=== PATIENT | female | born 2000 | race Caucasian/White ===

== ENCOUNTER 2023-09-10 10:56 | Emergency (ER) | payer OTHER, SELFPAY ==
[2023-09-10 11:00] VITALS: BP 113/78
--- NOTE | 2023-09-10 12:17 | ED.GENMED ---
History of Present Illness
General
Chief Complaint: Musculo-Skeletal Complaint
Time Seen by Provider: 09/10/23 12:15
Travel History
Have you had any contact with someone who has COVID-19?: No
Do you have any symptoms of coronavirus? Fever > 100 degrees, chills, cough, shortness of breath, sore throat, loss of taste or smell, muscle aches, or headache?: No
History of Present Illness
History of Present Illness:
23-year-old female presents the emergency department for evaluation of left-sided pelvic pain over the past 2 days. She states she has had similar pain intermittently for the past 2 months and typically occurs with her menstrual cycle. Her last
period was just over 2 weeks ago, states that she began bleeding today and this is irregular for her. Denies any possibility of , does have an IUD. No reported fevers or chills. No lower urinary tract voiding symptoms
Review of Systems
Review of Systems
Allergies reviewed?: Yes
All Other Systems: ROS reviewed and negative except as documented in HPI and ROS
Phy Exam
Physical Exam
Physical Exam:
GEN: Well appearing, NAD, WDWN
HEENT: Oral mucosa moist, no scleral icterus
Cardiac: Regular rate
Lung: No respiratory distress, no tachypnea
Abdomen: Soft, nontender, minimal reproducible tenderness to the left lower pelvic region
MSK: No gross deformity or injuries
Skin: Good color, no pallor or jaundice, no rashes
Neuro: AO x3, moves all extremities freely
Psych: Calm, cooperative
Course
Orders/Labs/Results
Orders:
Orders
09/10/23 11:28
US Pelvis W Transvag Combined Urgent
Reason For Exam: L sided r/o ovarian cyst
09/10/23 12:41
Test Result ONCE
09/10/23 15:02
Beta Hcg Urine Qualitative Screen [HCG, Urine Qualitative Screen] Urgent
Date Specimen was Collected: 09/10/23
Time Specimen was Collected: 13:30
Urinalysis Reflex To Culture Urgent
Date Specimen was Collected: 09/10/23
Time Specimen was Collected: 13:30
Vital Signs
Initial and Last Documented VS:
Initial Vital Signs
Temp Pulse Resp BP Pulse Ox
97.9 F 78 16 113/78 100
09/10/23 11:00 09/10/23 11:00 09/10/23 11:00 09/10/23 11:00 09/10/23 11:00
Last Documented Vital Signs
Temp Pulse Resp BP Pulse Ox
97.9 F 78 16 113/78 100
09/10/23 11:00 09/10/23 11:00 09/10/23 11:00 09/10/23 15:19 09/10/23 11:00
MDM/Problems Addressed
MDM/Problems Addressed:
Ultrasound and urinalysis are unremarkable. Unclear etiology to the patient's symptoms. Discussed further supportive care and recommend [employer] f/u
*Critical Care Note
Total Time (30-74mins, 75-104mins- exclusive of procedures): Not Applicable
ED Attending Note
-
Portions of this chart may have been created with voice recognition software.� Occasional wrong word or��sound alike� substitutions may have occurred due to the inherent limitations of voice recognition software.
Discharge Plan
Departure
Patient Disposition: Home (Routine Discharge)
Date of Disposition: 09/10/23
Time of Disposition: 15:17
Patient with high blood pressure during this ER visit?: No
Discharge Problem:
Pelvic pain
Instructions: Pelvic Pain (DC)
Prescriptions:
No Action
montelukast 10 MG tablet
10 mg PO HS
albuterol sulfate [Ventolin HFA] 90 MCG/PUFF HFA aerosol inhaler
2 puff inhalation Q4HPRN PRN (Reason: sob/wheezing)
fluticasone propionate 1 SPRAY spray,suspension
2 spray intranasal BID
multivitamin with folic acid [Tab-A-Ninfa] 1 TABLET tablet
1 tab PO HS
acetaminophen [Genebs] 500 MG tablet
2 tab PO Q4H PRN (Reason: pain, headache) Qty: 30 0RF
oxycodone 5 MG tablet
5 mg PO Q4HPRN PRN (Reason: severe pain ) Qty: 7 0RF
Referrals:
Karen Pak DO [Family Provider] -
Interventions
Interventions:
*Risk Screen - Suicide Last Done: 09/10/23 15:19
*General Assessment Last Done: 09/10/23 11:00
*Neglect/Abuse Screening Last Done: 09/10/23 15:19
*Nursing Disposition Last Done: 09/10/23 15:19
ED-Musculoskeletal Assessment Last Done: 09/10/23 15:19
[2023-09-10 15:10] LABS: Urine Albumin Negative (Neg - Trace); Urine Bilirubin Negative (Negative); Urine Character Clear (Clear); Urine Color Straw; Urine Glucose Negative (Negative); Urine Ketone Negative (Negative); Urine Leukocyte Negative (Negative); Urine Nitrite Negative (Negative); Urine Occult Blood Negative (Negative); Urine Urobilinogen Negative (Neg - 1+)
[2023-09-10 15:19] VITALS: BP 113/78
[2023-09-10 15:27] LABS: HCG, Urine Qualitative Screen Negative
== END 2023-09-10 15:19 | disposition home or self-care (01) ==
LOC: EMR 10:56
PROVIDERS: Physician Assistant; EMERGENCY PHYSICIAN Emergency Medicine; FAMILY PHYSICIAN Family Medicine
DX: R10.2 Pelvic and perineal pain (principal)
CPT/HCPCS: 99284; 76830; 76856; 81003; 81025